=== PATIENT | female | born 1960 | race Caucasian/White ===

== ENCOUNTER → 2017-01-28 | Outpatient (CLI) | payer BC | END | disposition home or self-care (01) | LOC: RES 08:59 | DX: M33.20 Polymyositis, organ involvement unspecified (principal) | CPT/HCPCS: 94060; 94726; 94729 ==

== ENCOUNTER → 2017-11-18 | Outpatient (CLI) | payer BC | END | disposition home or self-care (01) | LOC: RES 11:00 | DX: R06.00 Dyspnea, unspecified (principal); M35.8 Other specified systemic involvement of connective tissue | CPT/HCPCS: 94010; 94726; 94729 ==